=== PATIENT | male | born 1985 | race Caucasian/White ===

== ENCOUNTER 2018-04-12 13:00 | Emergency (ER) | payer BC, MEDICAID ==
[~2018-04-12] VITALS: Ht 167.6 cm; Wt 115.3 kg
[~2018-04-12 13:00] MED LIST: HYDR-565 PO
[2018-04-12 13:05] VITALS: BP 155/109
[2018-04-12] MEDS ORDERED: ibuprofen tablet 400 MG TABLET PO ONE (14:15)
[2018-04-12] MEDS ORDERED: IBUP-1985 PO (14:16)
== END 2018-04-12 14:55 | disposition home or self-care (01) ==
LOC: ER 13:00
DX: S90.32XA Contusion of left foot, initial encounter (principal); Z91.018 Allergy to other foods; Z79.1 Long term (current) use of non-steroidal anti-inflammatories (NSAID); Z79.899 Other long term (current) drug therapy; X50.0XXA Overexertion from strenuous movement or load, initial encounter; Y93.89 Activity, other specified; Y92.89 Other specified places as the place of occurrence of the external cause; Y99.8 Other external cause status
CPT/HCPCS: 73630; 99284

== ENCOUNTER 2018-09-26 11:35 | Emergency (ER) | payer BC, OTHER ==
[~2018-09-26] VITALS: Ht 167.6 cm; Wt 115.9 kg
[~2018-09-26 11:35] MED LIST changes: +HYDR-4353 PO; -HYDR-565 PO; +IBUP-1985 PO
[2018-09-26 12:34] VITALS: BP 150/103
[2018-09-26] MEDS ORDERED: NAPR-56 PO (13:10)
[2018-09-26] MEDS ORDERED: CYCL-1 PO (13:10)
[2018-09-26] MEDS ORDERED: ketorolac trometh inj. 60 MG/2 ML VIAL IM ONE (13:10)
== END 2018-09-26 13:34 | disposition home or self-care (01) ==
LOC: EDSEX 11:36 → ER 11:36
DX: M54.5 Low back pain (principal); M62.830 Muscle spasm of back; Z91.018 Allergy to other foods; V49.88XA Car occupant (driver) (passenger) injured in other specified transport accidents, initial encounter; Y93.89 Activity, other specified; Y92.524 Gas station as the place of occurrence of the external cause; Y99.9 Unspecified external cause status
CPT/HCPCS: 96372; 99283; J1885

== ENCOUNTER 2019-10-16 19:36 | Emergency (ER) | payer BC, OTHER ==
[~2019-10-16] VITALS: Ht 165.1 cm; Wt 104.0 kg
[~2019-10-16 19:36] MED LIST changes: +CYCL-1 PO
[2019-10-16] MEDS ORDERED: LIDOcaine 1% W/epiNEPHrine 1:100,000 20ml vial IJ ONE (20:20)
[2019-10-16] MEDS ORDERED: LIDOcaine 0.5% W/epiNEPHrine 1:200,000 50ml vial IJ ONE (20:20)
[2019-10-16] MEDS ORDERED: LIDOcaine 1%/PF 5ML 10 MG/ML VIAL IJ ONE (20:20)
[2019-10-16 21:14] VITALS: BP 109/60
== END 2019-10-16 21:18 | disposition home or self-care (01) ==
LOC: ER 19:37
DX: S68.115A Complete traumatic metacarpophalangeal amputation of left ring finger, initial encounter (principal); F17.200 Nicotine dependence, unspecified, uncomplicated; Z91.018 Allergy to other foods; W29.0XXA Contact with powered kitchen appliance, initial encounter; Y93.89 Activity, other specified; Y92.89 Other specified places as the place of occurrence of the external cause; Y99.9 Unspecified external cause status
CPT/HCPCS: 12001; 73140; 99283

== ENCOUNTER 2020-12-08 11:47 | Emergency (ER) | payer BC, OTHER ==
[~2020-12-08] VITALS: Ht 170.2 cm; Wt 115.0 kg
[2020-12-08] MEDS ORDERED: ondansetron/PF 4mg/2ml inj IV ONE (12:15)
[2020-12-08] MEDS ORDERED: normal saline 1000ML IV soln IVB ONE (12:15)
[2020-12-08 12:36] LABS: CLARITY,URINE CLOUDY (Clear); COLOR,URINE YELLOW (Yellow); GLUCOSE, URINE NEGATIVE (Neg); KETONES,URINE NEGATIVE (Neg); LEUKOCYTE ESTERASE ,URINE SMALL (Neg); NITRITES, URINE NEGATIVE (Neg); OCCULT BLOOD,URINE NEGATIVE (Neg); PH,URINE 6.5 (4.8-8.0); PROTEIN,URINE NEGATIVE (Neg); URINE HCG NEGATIVE (NEG); UROBILINOGEN,URINE 0.2 E.U/dL (0.2-1.0)
[2020-12-08 12:37] LABS: UA COLLECTION TYPE CLN CATCH MIDSTREAM
[2020-12-08 12:43] LABS: BASOPHILS % (AUTO) 0.4 % (0-1); EOSINOPHILS # (AUTO) 0.2 X10'3 (0-0.9); EOSINOPHILS % (AUTO) 1.8 % (0-6); LYMPHOCYTES # (AUTO) 2.8 X10'3 (1.1-4.8); LYMPHOCYTES % (AUTO) 29.7 % (21-51); MEAN CORPUSCULAR HEMOGLOBIN 30.3 PG (27.0-31.0); MEAN CORPUSCULAR HGB CONC 33.4 g/dL (33.0-36.5); MEAN CORPUSCULAR VOLUME 90.6 FL (78-98); MEAN PLATELET VOLUME 8.3 FL (7.4-10.4); MONOCYTES # (AUTO) 0.7 X10'3 (0-0.9); MONOCYTES % (AUTO) 7.2 % (2-12); NEUTROPHILS # (AUTO) 5.8 X10'3 (1.8-7.7); NEUTROPHILS % (AUTO) 60.9 % (42-75); PLATELET COUNT 355 X10'3 (140-440); RED BLOOD COUNT 4.63 X10'6 (4.20-5.60); RED CELL DISTRIBUTION WIDTH 13.6 % (11.5-14.5); WHITE BLOOD COUNT 9.5 X10'3 (4.5-11.0)
[2020-12-08 12:43] LABS: SQUAMOUS EPITHELIAL CELL,UR MANY /LPF (FEW)
[2020-12-08 12:44] LABS: BACTERIA,URINE 2+ /HPF (Neg)
[2020-12-08 12:45] LABS: MUCUS STRANDS MANY /LPF (Neg); RBC,URINE 0-2 /HPF (0-2)
[2020-12-08 12:47] LABS: ALANINE AMINOTRANSFERASE 28 U/L (12-78); ALBUMIN 3.8 G/DL (3.4-5.0); ALKALINE PHOSPHATASE 92 IU/L (46-116); ANION GAP 11 (8-16); ASPARTATE AMINO TRANSFERASE 19 U/L (10-37); BILIRUBIN,TOTAL 0.4 MG/DL (0.1-1.0); BLOOD UREA NITROGEN 11 MG/DL (7-18); BUN/CREATININE RATIO 16.2 (6.6-38.0); CHLORIDE 107 MMOL/L (99-107); CREATININE 0.68 MG/DL (0.40-0.90); GLUCOSE 93 MG/DL (70-104); POTASSIUM 3.9 MMOL/L (3.5-5.1); SODIUM 144 MMOL/L (135-145); TOTAL CARBON DIOXIDE 26.5 MMOL/L (24-32); TOTAL PROTEIN 7.5 G/DL (6.4-8.2); eGFR > 90 ML/MIN
[2020-12-08 13:20] VITALS: BP 123/85
[2020-12-08] MEDS ORDERED: iohexol 300mg/ml 100ml inj. ONE (13:20)
== END 2020-12-08 14:24 | disposition home or self-care (01) ==
LOC: ER 11:47
DX: R11.2 Nausea with vomiting, unspecified (principal); R19.7 Diarrhea, unspecified; R10.9 Unspecified abdominal pain; Z91.018 Allergy to other foods; Z79.899 Other long term (current) drug therapy
CPT/HCPCS: 36415; 74177; 80053; 81001; 81025; 82948; 85025; 96361; 96374; 99285; J2405; J7030; Q9967

== ENCOUNTER 2022-05-10 15:49 | Emergency (ER) | payer BC ==
[~2022-05-10] VITALS: Ht 165.1 cm; Wt 122.0 kg
[2022-05-10 16:08] VITALS: BP 135/93
[2022-05-10] MEDS ORDERED: IBUP-1986 PO (19:01)
== END 2022-05-10 19:36 | disposition home or self-care (01) ==
LOC: ER 15:49
DX: M25.561 Pain in right knee (principal); Z91.018 Allergy to other foods; Z79.899 Other long term (current) drug therapy
CPT/HCPCS: 99282; A6449

== ENCOUNTER 2022-07-10 08:50 | Emergency (ER) | payer BC ==
[~2022-07-10] VITALS: Ht 167.6 cm; Wt 122.7 kg
[~2022-07-10 08:50] MED LIST changes: +IBUP-1986 PO
[2022-07-10 09:59] LABS: BASOPHILS # (AUTO) 0.1 X10'3 (0-0.2); BASOPHILS % (AUTO) 0.6 % (0-1); EOSINOPHILS # (AUTO) 0.1 X10'3 (0-0.9); EOSINOPHILS % (AUTO) 0.8 % (0-6); HEMATOCRIT 41.2 % (35.0-45.0); LYMPHOCYTES # (AUTO) 2.5 X10'3 (1.1-4.8); LYMPHOCYTES % (AUTO) 17.4 % (21-51); MEAN CORPUSCULAR HEMOGLOBIN 29.6 PG (27.0-31.0); MEAN CORPUSCULAR VOLUME 87.2 FL (78-98); MEAN PLATELET VOLUME 8.6 FL (7.4-10.4); MONOCYTES # (AUTO) 1.1 X10'3 (0-0.9); MONOCYTES % (AUTO) 7.8 % (2-12); NEUTROPHILS # (AUTO) 10.5 X10'3 (1.8-7.7); NEUTROPHILS % (AUTO) 73.4 % (42-75); PLATELET COUNT 336 X10'3 (140-440); RED BLOOD COUNT 4.72 X10'6 (4.20-5.60); WHITE BLOOD COUNT 14.3 X10'3 (4.5-11.0)
[2022-07-10 10:04] LABS: ALANINE AMINOTRANSFERASE 27 U/L (12-78); ALBUMIN 3.7 G/DL (3.4-5.0); ALKALINE PHOSPHATASE 101 IU/L (46-116); ANION GAP 8 (8-16); ASPARTATE AMINO TRANSFERASE 22 U/L (10-37); BILIRUBIN,TOTAL 0.5 MG/DL (0.1-1.0); BLOOD UREA NITROGEN 10 MG/DL (7-18); BUN/CREATININE RATIO 13.3 (6.6-38.0); CALCIUM 8.8 MG/DL (8.5-10.1); CHLORIDE 105 MMOL/L (99-107); CREATININE 0.75 MG/DL (0.40-0.90); GLUCOSE 113 MG/DL (70-104); POTASSIUM 3.8 MMOL/L (3.5-5.1); SODIUM 136 MMOL/L (135-145); TOTAL PROTEIN 7.4 G/DL (6.4-8.2); eGFR 87 ML/MIN
[2022-07-10 12:19] VITALS: BP 124/64
== END 2022-07-10 12:22 | disposition home or self-care (01) ==
LOC: ER 08:50
DX: R07.89 Other chest pain (principal); R06.02 Shortness of breath; Z88.8 Allergy status to other drugs, medicaments and biological substances; Z79.899 Other long term (current) drug therapy
CPT/HCPCS: 36415; 71045; 80053; 83880; 84484; 85025; 93005; 99285